=== PATIENT | male | born 1975 | race Caucasian/White ===

== ENCOUNTER → 2017-01-20 | Outpatient (CLI) | payer BC ==
[2017-01-20 14:43] LABS: Basophils % (A) 1 %; CH 34.5; Eosinophils # (A) 0.2 k/uL (0-0.7); Eosinophils % (A) 4 %; HCT 48.1 % (39.0-53.0); HDW 2.63; HGB 17.1 gm/dL (13.0-17.5); Luc # (Auto) 0.09; Luc % (Auto) 2; Lymphocytes # (A) 1.4 k/uL (1.0-4.8); Lymphocytes % (A) 27 %; MCH 33.2 pg (25.0-35.0); MCHC 35.5 g/dL (31.0-37.0); MCV 93.6 fL (80.0-100.0); Mean Platelet Volume 7.9; Monocytes # (A) 0.4 k/uL (0-1.0); Monocytes % (A) 8 %; Neutrophils % (A) 58 %; RBC 5.14 m/uL (4.30-5.90); RDW 12.7 % (11.5-15.5); WBC 5.1 k/uL (3.8-10.6); WBC (Perox) 5.09
[2017-01-20 14:48] LABS: ALT 40 U/L (21-72); AST 25 U/L (17-59); Alkaline Phosphatase 65 U/L (38-126); Anion Gap 10 mmol/L; Blood Urea Nitrogen 8 mg/dL (9-20); Calcium 9.8 mg/dL (8.4-10.2); Carbon Dioxide 27 mmol/L (22-30); Chloride 104 mmol/L (98-107); Cholesterol 200 mg/dL (<200); Glucose 84 mg/dL (74-99); HDL Cholesterol 52 mg/dL (40-60); Non-African American GFR(MDRD) >60 (>60 ml/min/1.73 sqM); Potassium 4.2 mmol/L (3.5-5.1); Sodium 141 mmol/L (137-145); Total Bilirubin 0.9 mg/dL (0.2-1.3); Uric Acid 7.8 mg/dL (3.5-8.5)
--- NOTE | 2017-01-20 14:49 | US ---
EXAMINATION TYPE: US soft tissue head/neck DATE OF EXAM: 01/20/2017 COMPARISON: NONE CLINICAL HISTORY: K11.5 Sialolithiasis. Patient c/o neck swelling, palpables at right neck especially noted after meals US of right neck: at patient's area of palpable at right submandibular region a couple of small hypoe choic nodules are seen with primary palpable measuring 1.4 x 1.1 x 0.4cm. Secondary nodule is noted m ore superiorly at right neck. Left neck submandibular region was also imaged for comparison with hypo echoic nodule seen at angle of jaw = 1.0 x 0.4 x 0.4cm. IMPRESSION: Findings are most compatible with small lymph nodes.
== END | disposition home or self-care (01) ==
LOC: RADUSWWP 13:29
PROVIDERS: ATTEND Family Medicine
DX: K11.5 Sialolithiasis (principal)
CPT/HCPCS: 76536; 80053; 80061; 82164; 84443; 84550; 85025; 86235

== ENCOUNTER → 2020-01-29 | Outpatient (CLI) | payer BC ==
--- NOTE | 2020-01-29 19:59 | CT ---
EXAMINATION TYPE: CT abdomen pelvis wo/w con DATE OF EXAM: 01/29/2020 COMPARISON: Abdomen pain INDICATION: Abdominal pain. Stat hold and call DLP: 1041.20 mGycm, Automated exposure control for dose reduction was used. CONTRAST: 100 mL of Isovue 300. Study performed with Oral Contrast TECHNIQUE: Axial images were obtained from above the diaphragm to the pubic rami in the axial plane a t 5 mm thick sections. Reconstructed images are reviewed on the computer in the coronal plane. FINDINGS: Limited CT sections are obtained the lung bases. The lung bases are clear. CT ABDOMEN: Liver: Normal Spleen: Normal Pancreas: Normal Adrenal glands: The adrenal glands are normal. Gallbladder: Normal Kidneys: No masses are evident. No hydronephrosis is present. No cysts are present. No renal stone s are identified. There is a right extrarenal pelvis. Aorta: Normal Inferior vena cava: Normal. CT PELVIS: There is a short segment of ileum which may has some mild wall thickening. Series 11 image 39. This could be peristalsis at the time of the exam. This is imaged only on a single sequence beti ot be evaluated for chemical cell changer time. Loops of bowel within the abdomen and pelvis are normal. There are loops of bowel which are incom pletely distended or lack oral contrast limiting their evaluation. Appendix: Normal as visualized. Urinary bladder: Normal. Genitourinary structures: Prostate is prominent. Osseous structures: No suspicious lytic or sclerotic lesions. IMPRESSIONS: 1. Some mild wall thickening within the distal ileum just proximal to the terminal ileum is not excl uded. However, this could also include peristalsis at the time of the examination. No additional susp icious bowel abnormalities are evident. The appendix in the right lower quadrant is normal. 2. CT abdomen is otherwise unremarkable.
== END | disposition home or self-care (01) ==
LOC: RADCTMAIN 17:15
PROVIDERS: ATTEND Family Medicine
DX: K63.89 Other specified diseases of intestine (principal)
CPT/HCPCS: 74178; Q9967

== ENCOUNTER → 2020-09-14 | Outpatient (CLI) | payer BC ==
--- NOTE | 2020-09-14 21:21 | MR ---
EXAMINATION TYPE: MR angio head wo con DATE OF EXAM: 09/14/2020 COMPARISON: None HISTORY: Family history of ischemic heart disease and other diseases of the circulatory system. Z 82. 49 TECHNIQUE: Time of flight images focusing on the [place] of [place] were performed without contrast. Th ree-dimensional reconstructions performed on an alternate workstation. FINDINGS: Anterior and posterior circulation are patent. There is variant with near origin of t he posterior cerebral artery on the left, normal variant. Vertebral arteries are codominant. No evide nt stenosis, embolus, aneurysm or dissection. IMPRESSION: No significant abnormality is evident.
== END | disposition home or self-care (01) ==
LOC: RADMRIMAIN 18:04
PROVIDERS: ATTEND Nurse Practitioner Adult Health
DX: Z13.6 Encounter for screening for cardiovascular disorders (principal); Z82.49 Family history of ischemic heart disease and other diseases of the circulatory system
CPT/HCPCS: 70544

== ENCOUNTER → 2020-09-23 | Outpatient (CLI) | payer BC | END | disposition home or self-care (01) | LOC: RADNMMAIN 08:36 | PROVIDERS: ATTEND Family Medicine | DX: Z53.9 Procedure and treatment not carried out, unspecified reason (principal) ==

== ENCOUNTER → 2020-09-25 | Outpatient (CLI) | payer BC ==
--- NOTE | 2020-09-25 11:38 | ECHOF ---
Referral Reason:I10 Essential hypertension MEASUREMENTS -------- HEIGHT: 165.1 cm WEIGHT: 79.4 kg BP: RVIDd: 3.3 cm (< 3.3) IVSd: 1.4 cm (0.6 - 1.1) LVIDd: 3.9 cm (3.9 - 5.3) LVPWd: 1.4 cm (0.6 - 1.1) IVSs: 1.6 cm LVIDs: 2.4 cm LVPWs: 1.9 cm LAESV Index (A-L): 25.24 ml/m Ao Diam: 3.3 cm (2.0 - 3.7) AV Cusp: 1.9 cm (1.5 - 2.6) MV EXCURSION: 17.333 mm (> 18.000) MV EF SLOPE: 52 mm/s (70 - 150) EPSS: 1.3 cm MV E Gigi: 0.74 m/s MV DecT: 198 ms MV A Gigi: 0.94 m/s MV E/A Ratio: 0.78 RAP: 5.00 mmHg RVSP: 23.47 mmHg FINDINGS -------- Sinus rhythm. This was a technically adequate study. The left ventricular size is normal. There is moderate concentric left ventricular hypertrophy. O verall left ventricular systolic function is normal with, an EF between 55 - 60 %. The diastolic fi lling pattern is normal for the age of the patient 11.63. The right ventricle is normal in size. Normal LA size by volume 22+/-6 ml/m2. The right atrial size is normal. Interatrial and interventricular septum intact. The aortic valve is trileaflet and appears structurally normal. There is no evidence of aortic regu rgitation. There is no evidence of aortic stenosis. There is trace mitral regurgitation. Mild tricuspid regurgitation present. There is no evidence of pulmonary hypertension. The right v entricular systolic pressure, as measured by Doppler, is 23.47mmHg. There is no pulmonic regurgitation present. The aortic root size is normal. Normal inferior vena cava with normal inspiratory collapse consistent with estimated right atrial pre ssure of 5 mmHg. There is no pericardial effusion. CONCLUSIONS -------- 1. The left ventricular size is normal. 2. There is moderate concentric left ventricular hypertrophy. 3. Overall left ventricular systolic function is normal with, an EF between 55 - 60 %. 4. The diastolic filling pattern is normal for the age of the patient 11.63 5. Mild tricuspid regurgitation present. SAIL LAY OUT WORKER: Melida Lai RDCS
== END | disposition home or self-care (01) ==
LOC: RADECHMAIN 10:29
PROVIDERS: ATTEND Family Medicine
DX: I07.1 Rheumatic tricuspid insufficiency (principal)
CPT/HCPCS: 93306

== ENCOUNTER → 2020-09-29 | Outpatient (CLI) | payer BC ==
--- NOTE | 2020-09-29 18:50 | P.STRESS ---
- Stress Test Note Stress Test Results/Findings: Exam Performed: stress test Exam Date: 09/29/20 Reason for Exam: ABNORMAL EKG Height: 5 ft 5 in Weight: 175 kg Protocol: AZALEA Stage: 4 Duration of Exercise: 11:03 Resting Heart Rate: 58 Resting Blood Pressure: 149/107 Maximum Achieved Heart Rate: 150 Maximum Achieved Blood Pressure: 214/136 85% PMHR: 147 100% PMHR: 173 METS: 12.1 Technologist Comment: Stress Test Results/Findings: Baseline heart rate 58 beats a minute, Baseline blood pressure 140 90 107 mmHg Baseline per EKG showed sinus rhythm with normal ST segments LVH noted Patient exercised for a Azalea protocol for 11 minutes achieving a peak heart rate of 150 beats a minute. Hypertensive response to exercise. Peak blood p ressure 214/106. His mercury There was no ECG is with arrhythmia Minimal upsloping ST depression No clear-cut evidence for ischemia Excellent exercise capacity Hypertensive response to exercise
--- NOTE | 2020-10-02 10:46 | EST ---
Stress Test Results/Findings: Exam Performed: stress test Exam Date: 09/29/20 Reason for Exam: ABNORMAL EKG Height: 5 ft 5 in Weight: 175 kg Protocol: AZALEA Stage: 4 Duration of Exercise: 11:03 Resting Heart Rate: 58 Resting Blood Pressure: 149/107 Maximum Achieved Heart Rate: 150 Maximum Achieved Blood Pressure: 214/136 85% PMHR: 147 100% PMHR: 173 METS: 12.1 Technologist Comment: Stress Test Results/Findings: Baseline heart rate 58 beats a minute, Baseline blood pressure 140 90 107 mmHg Baseline per EKG showed sinus rhythm with normal ST segments LVH noted Patient exercised for a Azalea protocol for 11 minutes achieving a peak heart rate of 150 beats a minute. Hypertensive response to exercise. Peak blood pressure 214/106. His mercury There was no ECG is with arrhythmia Minimal upsloping ST depression No clear-cut evidence for ischemia Excellent exercise capacity Hypertensive response to exercise MTDD
== END | disposition home or self-care (01) ==
LOC: RADNMMAIN 10:34
PROVIDERS: ATTEND Family Medicine
DX: R94.31 Abnormal electrocardiogram [ECG] [EKG] (principal); I10 Essential (primary) hypertension
CPT/HCPCS: 93017

== ENCOUNTER → 2023-07-18 | Outpatient (CLI) | payer BC ==
--- NOTE | 2023-07-19 17:36 | US ---
EXAMINATION TYPE: US st tissue neck DATE OF EXAM: 07/18/2023 COMPARISON: US 01/20/2017 CLINICAL INDICATION: Male, 48 years old with history of R59.0 LOCALIZED ENLARGED LYMPH NODES; Palpabl e area within right submandibular area x a couple years. Area swells intermittently. No other palpabl e areas. TECHNIQUE: Bilateral neck scanned. FINDINGS: Porcelain Enamel Installer notes: *Isoechoic area with vascularity seen within right submandibular area, at the patient's palpable area of concern measurin.9 x 2.2 x 2.0 cm. 01/20/2017, this measured 3.3 x 3.3 x 1.5 cm. No abnormalities seen within midline neck or left neck. IMPRESSION: Masslike appearance to the region of the right submandibular gland fairly similar compared to 2017 me asuring 2.9 cm versus 3.3 cm at that time. Correlate for any known diagnosis. There is otherwise, no lymphadenopathy seen. A salivary gland tumor is possible. If there is intermittent swelling, consider sialoadenitis.
== END | disposition home or self-care (01) ==
LOC: RADUSWWP 16:10
PROVIDERS: ATTEND Family Medicine
DX: K11.8 Other diseases of salivary glands (principal); R59.0 Localized enlarged lymph nodes
CPT/HCPCS: 76536

== ENCOUNTER → 2023-09-13 | Outpatient (CLI) | payer BC ==
[2023-09-13 15:25] LABS: Blood Urea Nitrogen 10.5 mg/dL (9.0-27.0); Chloride 101 mmol/L (96-109); Potassium 3.6 mmol/L (3.5-5.5); Sodium 141 mmol/L (135-145)
[2023-09-13 16:18] LABS: HCT 46.5 % (39.6-50.0); HGB 16.5 g/dL (13.0-17.0); MCH 32.8 pg (27.0-32.0); MCHC 35.5 g/dL (32.0-37.0); MCV 92.4 FL (80.0-97.0); Mean Platelet Volume 11.1 FL (9.5-12.2); NRBC Per 100 WBC 0 X 10*3/uL (0.00-0.01); Platelet Count 234 X 10*3/uL (140-440); RBC 5.03 X 10*6/uL (4.40-5.60); RDW 11.6 % (11.5-14.5); WBC 4.73 X 10*3/uL (4.50-10.00)
== END | disposition home or self-care (01) ==
LOC: LABWHC1 07:58
PROVIDERS: ATTEND Internal Medicine
DX: Z01.812 Encounter for preprocedural laboratory examination (principal); R06.02 Shortness of breath
CPT/HCPCS: 36415; 80051; 82565; 84520; 85027

== ENCOUNTER 2023-09-18 10:41 | Day surgery (SDC) | payer BC ==
[~2023-09-18 10:41] MED LIST: ALPRAZolam 0.25 MG TAB PO PRN; ALPRAZolam 0.5 MG TAB PO PRN; ASPIRIN 325 MG TAB PO ONE; NITROGLYCERIN SL TABS 0.4 MG TAB SUBLINGUAL PRN; SODIUM CHLORIDE 0.9% 1,000 ML in EMPTY BAG 1 BAG IV SCH
[2023-09-18 11:46] LABS: Basophils % (A) 1 %; Eosinophils # (A) 0.1 k/uL (0-0.7); Eosinophils % (A) 2 %; HCT 49.4 % (39.0-53.0); HGB 17.3 gm/dL (13.0-17.5); Lymphocytes # (A) 1.8 k/uL (1.0-4.8); Lymphocytes % (A) 30 %; MCH 33.2 pg (25.0-35.0); MCHC 35.1 g/dL (31.0-37.0); MCV 94.4 fL (80.0-100.0); Mean Platelet Volume 8.2; Monocytes # (A) 0.5 k/uL (0-1.0); Monocytes % (A) 9 %; Neutrophils # (A) 3.5 k/uL (1.3-7.7); Neutrophils % (A) 57 %; Platelet Count 236 k/uL (150-450); RBC 5.23 m/uL (4.30-5.90); RDW 11.3 % (11.5-15.5); WBC 6.2 k/uL (3.8-10.6)
[2023-09-18] MEDS: SODIUM CHLORIDE 0.9% 1,000 ML IV ONE (11:52)
[2023-09-18 11:56] VITALS: RESP 16; TEMP 97.8
[2023-09-18 12:05] LABS: African American GFR (CKD) >90 (>60 ml/min/1.73 sqM); Anion Gap 8 mmol/L; Blood Urea Nitrogen 14 mg/dL (9-20); Calcium 9.9 mg/dL (8.4-10.2); Carbon Dioxide 27 mmol/L (22-30); Chloride 102 mmol/L (98-107); Glucose 101 mg/dL (74-99); Non-African American GFR(CKD) >90 (>60 ml/min/1.73 sqM); Potassium 3.7 mmol/L (3.5-5.1); Sodium 137 mmol/L (137-145)
[2023-09-18] MEDS ORDERED: VERAPAMIL 2.5 MG/ML 2 ML AMP ONE (12:39)
[2023-09-18] MEDS ORDERED: LIDOCAINE 1% INJ 10MG/ML (20 ML MDV) ONE (12:40)
[2023-09-18] MEDS ORDERED: HEPARIN SODIUM 1,000 UN/ML (10ML VL) ONE (12:51)
[2023-09-18] MEDS ORDERED: fentaNYL (PF) 50 MCG/ML 2 ML AMP ONE (12:51)
[2023-09-18] MEDS: fentaNYL (PF) 50 MCG/ML 2 ML AMP IVP ONE (12:57)
[2023-09-18] MEDS: MIDAZOLAM 2 MG/2 ML VIAL IVP ONE (12:57)
[2023-09-18] MEDS: LIDOCAINE 1% INJ 10MG/ML (20 ML MDV) SQ ONE (12:57)
[2023-09-18] MEDS: VERAPAMIL SYRINGE (5 MG/10 ML) INTRAARTER ONE (12:57)
[2023-09-18] MEDS: HEPARIN SODIUM 1,000 UN/ML (10ML VL) IVP ONE ×2 (13:00→13:10)
[2023-09-18] MEDS: IOPAMIDOL-370 100ML BTL INJ ONE (13:11)
--- NOTE | 2023-09-18 16:10 | P.CARDCATH ---
Description of Procedure: PROCEDURES PERFORMED: Left heart catheterization, bilateral coronary angiography, ultrasound guided arterial access, iFR LAD INDICATION: Abnormal stress test CONSENT:I have discussed the risks, benefits and alternative therapies for the above-mentioned procedure and for both sedation/analgesia as well as necessary blood product administration, if indicated, as they pertain to this patient. The patient has indicated understanding and acceptance of the risks and procedures discussed. PROCEDURE: After the risks, benefits and alternatives of the above mentioned procedure explained in detail with the patient, informed consent was obtained. Patient was taken to the catheterization lab and prepped and draped in usual fashion. Ultrasound guidance was used to assess for arterial access. 1% lidocaine was used to anesthetize the right radial artery. A 6-Mauritian sheath was placed in the right radial artery using modified Seldinger technique and ultrasound guidance. Left coronary angiography was performed with a 5-Mauritian JL 3.5 catheter and right coronary angiography was performed with a 5-Mauritian FR5 catheter in various views. A 5-Mauritian FR5 catheter was inserted into the left ventricle and pressure measurements were obtained. The decision was made to perform iFR of the LAD. Heparin was given. A 0.014 pressure wire was advanced in the left main and then normalized. It was then advanced 1 cm distal to the mid LAD and iFR was performed and normal at 0.94. The right radial sheath was removed and a TR band was placed with hemostasis achieved. The patient tolerated the procedure well. Patient was transported back to the post catheterization holding area in stable condition. Conscious Sedation: Patient was monitored under the direct supervision of myself for conscious sedation using Versed and fentanyl for a total duration of 14 minutes HEMODYNAMICS: Aorta: 182/92 LV: 181/10, LVEDP 22 SELECTIVE CORONARY ARTERIOGRAPHY: LEFT MAIN: The left main is a large caliber vessel which bifurcates into the LAD and circumflex. There is no significant stenosis. LEFT ANTERIOR DESCENDING CORONARY ARTERY: LAD is a large caliber vessel which wraps around to the apex. There is Diffuse proximal LAD calcification with tandem proximal 40%, 50% and mid LAD 40% stenosis. Otherwise there are mild luminal irregularities. LEFT CIRCUMFLEX CORONARY ARTERY: Left circumflex is a large caliber vessel with mild luminal irrgularities. The circumflex gives off the PDA and is the dominant vessel. RIGHT CORONARY ARTERY: The right coronary artery is a small caliber vessel which gives off an acute marginal branch and is a non dominant vessel. There is no significant stenosis. FINAL IMPRESSION: 1. CAD as described above including proximal LAD 40-50% stenosis, mid LAD 40% stenosis and otherwise mild luminal irregularities 2. Elevated left sided filling pressures 3. Hypertensive throughout exam 4. iFR LAD normal PLAN: 1. Aggressive risk factor modification per most recent ACC/AHA guidelines. 2. Follow-up in the office in 1-2 weeks. 3. Consider more aggressive BP regimen
[2023-09-18 17:56] VITALS: BP 149/87; PULSE 61
== END 2023-09-18 17:34 | disposition home or self-care (01) ==
LOC: CATHCVL 10:41
PROVIDERS: ATTEND Internal Medicine
DX: I25.10 Atherosclerotic heart disease of native coronary artery without angina pectoris (principal); I10 Essential (primary) hypertension; Z79.899 Other long term (current) drug therapy
CPT/HCPCS: 93458; 93799; 76937; 80048; 85025; C1769 ×2; C1894; J2250; J2001; J3010; J1644; Q9967

== ENCOUNTER → 2023-09-21 | Outpatient (CLI) | payer BC ==
--- NOTE | 2023-09-21 10:35 | CT ---
EXAMINATION TYPE: CT soft tissue neck w con DATE OF EXAM: 09/21/2023 COMPARISON: None HISTORY: 48-year-old male R22.1, Localized swelling, mass and lump RT side, marked by BB TECHNIQUE: Contiguous axial scanning of the soft tissues of the neck performed with IV Contrast, mi ent injected with 100 mL of Isovue 300. Coronal/sagittal reconstructions performed. CT DLP: 604 mGycm Automated exposure control for dose reduction was used. FINDINGS: Leftward nasal septal deviation. Paranasal sinuses and mastoid air cells appear clear. Visualized int racranial structures and orbits and globes appear intact. Oropharynx is clear. Mild bilateral palatine tonsillar hypertrophy. Mild bilateral tonsillar hypertrophy. Nasopharynx and oropharynx otherwise clear. Epiglottis and prevertebral soft tissues are satisfactory. Glottic and subglottic structures as well as the tracheal column and visualized upper lungs are clear . The thyroid gland, bilateral submandibular glands, and parotid glands appear satisfactory. Palpable marker has been placed over the right mandibular gland. Some asymmetrically larger right submandibular space lymph nodes are noted near measuring up to 7 mm, probably reactive/post inflammatory. No other cervical lymphadenopathy is seen or suspicious neck mass. Bones: Moderate anterior endplate spondylosis C5-C6. No osseous destructive process. IMPRESSION: 1. PALPABLE MARKER PLACED ALONG THE RIGHT SUBMANDIBULAR SPACE. UNDERLYING THE MARKER, THERE ARE A VIE W LYMPH NODES THAT ARE ASYMMETRICALLY LARGER COMPARED TO THE LEFT SIDE MEASURING UP TO 7 MM. PROBABLY REACTIVE/POST INFLAMMATORY. NO SUSPICIOUS CERVICAL ADENOPATHY OR NECK MASS IS IDENTIFIED. CLINICAL F OLLOW-UP RECOMMENDED TO ENSURE STABILITY/RESOLUTION. TARGETED ULTRASOUND CAN BE PERFORMED IF ANY PROG RESSIVE ENLARGEMENT. 2. MILD BILATERAL PALATINE TONSILLAR AND LINGUAL TONSILLAR HYPERTROPHY.
== END | disposition home or self-care (01) ==
LOC: RADCTMAIN 08:32
PROVIDERS: ATTEND Otolaryngology
DX: J35.1 Hypertrophy of tonsils (principal); R22.1 Localized swelling, mass and lump, neck
CPT/HCPCS: 70491; Q9967

== ENCOUNTER 2023-10-29 16:07 | Emergency (ER) | payer BC ==
[2023-10-29 16:26] VITALS: TEMP 98.3
--- NOTE | 2023-10-29 16:53 | ED ---
ENT HPI - General Chief complaint: ENT Stated complaint: Swollen glands Time Seen by Provider: 10/29/23 16:27 Source: patient, family, RN notes reviewed, old records reviewed Mode of arrival: ambulatory Limitations: no limitations - History of Present Illness Initial comments: 48-year-old male with a past medical history of hypertension and gout presenting to the ED with a chief complaint of swollen lymph nodes. Patient reports has had intermittent swelling of right lymph node for the past 4 years. He admits that he has not been evaluated for this formally. However, the past few months patient reports that this has worsened. Patient saw Dr. Alfaro for this last month who performed a CT soft tissue neck with contrast on 09/21/2023 which did show asymmetrically larger right submandibular space lymph nodes measuring up to 7 mm. Reports since then swelling has increased and increasing difficulty swallowing solid foods. States in the last 2 days he has only been able to tolerate a banana still able to tolerate liquids. Does note that it has been typically painless but since it has become more swollen has also become more painful. Denies night sweats. Denies unexplained fevers. Patient's does note that he has unexpectedly lost 10 to 15 pounds over the last 4 months. Upon arrival, does note development of some nausea. Denies chest pain or shortness of breath at this time. No changes in bowel or bladder habits other complaints at this time. - Related Data Home Medications Medication Instructions Recorded Confirmed Rosuvastatin [Crestor] 10 mg PO HS 09/14/23 09/14/23 allopurinoL 100 mg PO AC-SUPPER 09/14/23 09/14/23 amLODIPine [Norvasc] 2.5 mg PO QAM 09/14/23 09/18/23 cloNIDine HCL 0.1 mg PO AC-SUPPER 09/14/23 09/14/23 hydroCHLOROthiazide 25 mg PO AC-SUPPER 09/14/23 09/14/23 tadalafiL 5 mg PO HS 09/14/23 09/14/23 Aspirin 81 mg PO ONCE 09/18/23 09/18/23 Previous Rx's Medication Instructions Recorded Amoxic-Pot Clav 875-125Mg 1 tab PO Q12HR 7 Days #14 tab 10/29/23 [Augmentin 875-125] Ibuprofen [Motrin] 600 mg PO Q8HR PRN #30 tab 10/29/23 Allergies Allergy/AdvReac Type Severity Reaction Status Date / Time No Known Allergies Allergy Verified 10/29/23 16:26 Review of Systems ROS Statement: Those systems with pertinent positive or pertinent negative responses have been documented in the HPI. ROS Other: All systems not noted in ROS Statement are negative. Past Medical History Past Medical History: Coronary Artery Disease (CAD), Chest Pain / Angina, GERD/Reflux, Hyperlipidemia, Hypertension, Prostate Disorder Additional Past Medical History / Comment(s): Pt. states shortness of breath occassionally, enlarged prostate, thyroid nodule? - F/U w/ Dr. Davis next week History of Any Multi-Drug Resistant Organisms: None Reported Additional Past Surgical History / Comment(s): eye surgery at 3 yrs. age Past Anesthesia/Blood Transfusion Reactions: No Reported Reaction Past Psychological History: No Psychological Hx Reported Smoking Status: Never smoker Past Alcohol Use History: Occasional Past Drug Use History: Marijuana - Past Family History Mother Family Medical History: CVA/TIA Additional Family Medical History / Comment(s): ruptured brain aneurysm General Exam Limitations: no limitations General appearance: alert, in no apparent distress ENT exam: Present: other (Right cervical and submandibular lymphadenopathy. Tongue appears deviated to the left and is unable to protrude the tongue secondary to swelling. Uvula midline. Mucous membranes moist. No stridor. Tolerating secretions.) Respiratory exam: Present: normal lung sounds bilaterally Cardiovascular Exam: Present: regular rate GI/Abdominal exam: Present: soft, normal bowel sounds. Absent: distended, tenderness, guarding, rebound, rigid Neurological exam: Present: alert, oriented X3 Skin exam: Present: warm, dry Course Vital Signs 10/29/23 10/29/23 10/29/23 16:22 17:49 19:02 Temperature 98.3 F Pulse Rate 82 86 81 Respiratory 16 18 18 Rate Blood Pressure 162/125 153/108 138/81 O2 Sat by Pulse 99 99 98 Oximetry 10/29/23 19:19 Temperature Pulse Rate 81 Respiratory 18 Rate Blood Pressure 138/81 O2 Sat by Pulse 97 Oximetry Medical Decision Making - Medical Decision Making Was pt. sent in by a medical professional or institution (, PA, WIND OPERATIONS SUPERVISOR, urgent care, hospital, or intermediate...) When possible be specific @ -No Did you speak to anyone other than the patient for history (EMS, parent, family, police, friend...)? What history was obtained from this source @ -No Did you review nursing and triage notes (agree or disagree)? Why? @ -I reviewed and agree with nursing and triage notes Were old charts reviewed (outside hosp., previous admission, EMS record, old EKG, old radiological studies, urgent care reports/EKG's, intermediate records)? Report findings @ -No old charts were reviewed Differential Diagnosis (chest pain, altered mental status, abdominal pain women, abdominal pain men, vaginal bleeding, weakness, fever, dyspnea, syncope, headache, dizziness, GI bleed, back pain, seizure, CVA, palpatations, mental health, musculoskeletal)? @ -Reactive adenitis, tuberculosis, cellulitis, malignancy, rheumatologic disease This is not meant to be an all-inclusive list. EKG interpreted by me (3pts min.). @ -None X-rays interpreted by me (1pt min.). @ -Chest x-ray interpreted me which revealed no evidence of acute finding. CT interpreted by me (1pt min.). @ -CT soft tissue neck inter by me which shows sialoadenitis involving the right submandibular gland with obstructing calculus near the right tongue at Lynn's duct. U/S interpreted by me (1pt. min.). @ -Ultrasound interpreted me hypoechoic area seen measuring 3.1 x 2.4 x 3 cm in the right submandibular area. What testing was considered but not performed or refused? (CT, X-rays, U/S, labs)? Why? @ -None What meds were considered but not given or refused? Why? @ -None Did you discuss the management of the patient with other professionals (professionals i.e. , PA, WIND OPERATIONS SUPERVISOR, lab, RT, psych nurse, social services aide, insemination worker, teacher, district resource officer, lining caser)? Give summary @ -Case discussed with Dr. Alfaro, of ENT, who recommends antibiotics with repeat CT scan. Was smoking cessation discussed for >3mins.? @ -No Was critical care preformed (if so, how long)? @ -No Were there social determinants of health that impacted care today? How? (Homelessness, low income, unemployed, alcoholism, drug addiction, transporta tion, low edu. Level, literacy, decrease access to med. care, usp, rehab)? @ -No Was there de-escalation of care discussed even if they declined (Discuss DNR or withdrawal of care, Hospice)? DNR status @ -No What co-morbidities impacted this encounter? (DM, HTN, Smoking, COPD, CAD, Cancer, CVA, ARF, Chemo, Hep., AIDS, mental health diagnosis, sleep apnea, morbid obesity)? @ -None Was patient admitted / discharged? Hospital course, mention meds given and route, prescriptions, significant lab abnormalities, going to OR and other pertinent info. @ -Discharge 48-year-old male presenting to the ED with complaints of swollen lymph nodes. Has been intermittently ongoing for the past 4 years however over the past has been worsening. CT soft tissue neck significant for sialadenitis of the right submandibular gland with an obstructing calculus in the right tongue at Lynn's duct. Laboratory studies reviewed. CBC unremarkable, CMP unremarkable, LDH slightly elevated at 253, CRP slightly elevated at 2.4. Patient provided a dose of Unasyn here. Discharged home with prescription for Augmentin. Advise warm compresses and sialagogues use. Advise close follow-up with ENT. Discussed tricked return precautions with patient who verbalized agreement. Undiagnosed new problem with uncertain prognosis? @ -No Drug Therapy requiring intensive monitoring for toxicity (Heparin, Nitro, Insulin, Cardizem)? @ -No Were any procedures done? @ -No Diagnosis/symptom? @ -Sialadenitis Acute, or Chronic, or Acute on Chronic? @ -Acute Uncomplicated (without systemic symptoms) or Complicated (systemic symptoms)? @ -Uncomplicated Side effects of treatment? @ -No Exacerbation, Progression, or Severe Exacerbation? @ -No Poses a threat to life or bodily function? How? (Chest pain, [place], PR, pneumonia, PE, COPD, DKA, ARF, appy, cholecystitis, CVA, Diverticulitis, Homicidal, Suicidal, threat to staff... and all critical care pts) @ -No - Lab Data Result diagrams: 10/29/23 16:47 10/29/23 16:47 Lab Results 10/29/23 10/29/23 Range/Units 16:47 16:47 WBC 9.2 (3.8-10.6) k/uL RBC 5.62 (4.30-5.90) m/uL Hgb 18.8 H (13.0-17.5) gm/dL Hct 52.7 (39.0-53.0) % MCV 93.9 (80.0-100.0) fL MCH 33.5 (25.0-35.0) pg MCHC 35.7 (31.0-37.0) g/dL RDW 11.5 (11.5-15.5) % Plt Count 253 (150-450) k/uL MPV 8.4 Neutrophils % 74 % Lymphocytes % 15 % Monocytes % 9 % Eosinophils % 1 % Basophils % 0 % Neutrophils # 6.8 (1.3-7.7) k/uL Lymphocytes # 1.4 (1.0-4.8) k/uL Monocytes # 0.8 (0-1.0) k/uL Eosinophils # 0.1 (0-0.7) k/uL Basophils # 0.0 (0-0.2) k/uL Manual Slide Review Performed RBC Morphology Normal Sodium 136 L (137-145) mmol/L Potassium 3.5 (3.5-5.1) mmol/L Chloride 99 (98-107) mmol/L Carbon Dioxide 23 (22-30) mmol/L Anion Gap 14 mmol/L BUN 10 (9-20) mg/dL Creatinine 0.75 (0.66-1.25) mg/dL Est GFR (CKD-EPI)AfAm >90 (>60 ml/min/1.73 sqM) Est GFR (CKD-EPI)NonAf >90 (>60 ml/min/1.73 sqM) Glucose 94 (74-99) mg/dL Calcium 10.2 (8.4-10.2) mg/dL Phosphorus 2.9 (2.5-4.5) mg/dL Total Bilirubin 1.6 H (0.2-1.3) mg/dL AST 36 (17-59) U/L ALT 38 (4-49) U/L Alkaline Phosphatase 105 (38-126) U/L Lactate Dehydrogenase 253 H (120-246) U/L C-Reactive Protein 2.4 H (<1.0) mg/dL Total Protein 8.2 (6.3-8.2) g/dL Albumin 5.3 H (3.5-5.0) g/dL Disposition Clinical Impression: Sialadenitis Disposition: HOME SELF-CARE Condition: Good Instructions (If sedation given, give patient instructions): Sialoadenitis (ED) Additional Instructions: Please return to the Emergency Department if symptoms worsen or any other concerns. Please follow-up with ENT. In addition to warm compresses have sour candies. Prescriptions: Amoxic-Pot Clav 875-125Mg [Augmentin 875-125] 1 tab PO Q12HR 7 Days #14 tab Ibuprofen [Motrin] 600 mg PO Q8HR PRN #30 tab PRN Reason: Pain Is patient prescribed a controlled substance at d/c from ED?: No Referrals: Juanito Navarrete MD [Primary Care Provider] - 1-2 days Time of Disposition: 20:45
[2023-10-29 17:20] LABS: Basophils % (A) 0 %; Eosinophils # (A) 0.1 k/uL (0-0.7); Eosinophils % (A) 1 %; HCT 52.7 % (39.0-53.0); HGB 18.8 gm/dL (13.0-17.5); Lymphocytes # (A) 1.4 k/uL (1.0-4.8); Lymphocytes % (A) 15 %; MCH 33.5 pg (25.0-35.0); MCHC 35.7 g/dL (31.0-37.0); MCV 93.9 fL (80.0-100.0); Mean Platelet Volume 8.4; Monocytes # (A) 0.8 k/uL (0-1.0); Monocytes % (A) 9 %; Neutrophils # (A) 6.8 k/uL (1.3-7.7); Neutrophils % (A) 74 %; Platelet Count 253 k/uL (150-450); RBC 5.62 m/uL (4.30-5.90); RDW 11.5 % (11.5-15.5); WBC 9.2 k/uL (3.8-10.6)
--- NOTE | 2023-10-29 17:22 | US ---
EXAMINATION TYPE: US thyroid st tissue head/neck DATE OF EXAM: 10/29/2023 N 2017 COMPARISON: EXAMINATION TYPE: US thyroid st tissue head/neck DATE OF EXAM: 10/29/2023 COMPARISON: 07/18/2023 CLINICAL INDICATION: Male, 48 years old with history of r submandibular lymphadnopathy; right neck renetta mp TECHNIQUE: FINDINGS: Scanned right neck hypoechoic area seen measuring 3.1 x 2.4 x 3.0 cm versus 2.9 x 2.2 x 2. 0 cm previously and in 2017 3.3 x 3.3 x 1.5 cm. Small hypoechoic area suggestive of lymph node seen 1 .0 x .7 cm. IMPRESSION: Continued masslike appearance in the region of the right submandibular gland with slight variation in size dating back to 2017. This could reflect sialoadenitis if there is associated intermittent swell ing. Salivary gland tumor is an additional possibility.
[2023-10-29] MEDS: SODIUM CHLORIDE 0.9% 1,000 ML IV STA (17:26)
[2023-10-29] MEDS: KETOROLAC 15 MG/ML 1 ML VIAL IVP STA (17:26)
[2023-10-29] MEDS: ONDANSETRON 4 MG/2 ML VIAL IVP STA (17:27)
[2023-10-29 17:34] LABS: RBC Morphology Normal
[2023-10-29 17:35] LABS: ALT 38 U/L (4-49); AST 36 U/L (17-59); African American GFR (CKD) >90 (>60 ml/min/1.73 sqM); Albumin 5.3 g/dL (3.5-5.0); Alkaline Phosphatase 105 U/L (38-126); Anion Gap 14 mmol/L; Blood Urea Nitrogen 10 mg/dL (9-20); C Reactive Protein 2.4 mg/dL (<1.0); Calcium 10.2 mg/dL (8.4-10.2); Carbon Dioxide 23 mmol/L (22-30); Chloride 99 mmol/L (98-107); Glucose 94 mg/dL (74-99); LDH 253 U/L (120-246); Non-African American GFR(CKD) >90 (>60 ml/min/1.73 sqM); Phosphorus 2.9 mg/dL (2.5-4.5); Potassium 3.5 mmol/L (3.5-5.1); Sodium 136 mmol/L (137-145); Total Bilirubin 1.6 mg/dL (0.2-1.3); Total Protein 8.2 g/dL (6.3-8.2)
[2023-10-29] MEDS: ACETAMINOPHEN IV (For NPO) 1,000 MG in EMPTY BAG 1 BAG IVPB STA (17:47)
[2023-10-29 17:50] VITALS: RESP 18
--- NOTE | 2023-10-29 18:09 | XR ---
EXAMINATION TYPE: XR chest 2V DATE OF EXAM: 10/29/2023 6:00 PM CLINICAL INDICATION:Male, 48 years old with history of r/o mass; COMPARISON: CT 09/21/2023. TECHNIQUE: XR chest 2V Frontal and lateral views of the chest. FINDINGS: Lungs/Pleura: There is no evidence of pleural effusion, focal consolidation, or pneumothorax. Pulmonary vascularity: Unremarkable. Heart/mediastinum: Cardiomediastinal silhouette is unremarkable. Musculoskeletal: No acute osseous pathology. IMPRESSION: 1. No acute cardiopulmonary disease/process. 2. No radiographic evidence for mass. Patient had recent CT 09/21/2023 no masses identified at that t vijaya within the neck.
[2023-10-29] MEDS: AMPICILLIN-SULBACTAM 3 GM in SODIUM CHLORIDE 0.9% 100 ML IVPB STA (19:19)
[2023-10-29] MEDS: HYDROmorphone 0.5 MG/0.5 ML SYRINGE IVP STA (19:20)
[2023-10-29] MEDS: DEXAMETHASONE SOD PHOSPHATE 10 MG/ML 1 ML VIAL IVP STA (19:20)
--- NOTE | 2023-10-29 20:20 | CT ---
EXAMINATION TYPE: CT soft tissue neck w con CT DLP: 370.1 mGycm, Automated exposure control for dose reduction was used. DATE OF EXAM: 10/29/2023 7:51 PM COMPARISON: 09/21/2023. CLINICAL INDICATION:Male, 48 years old with history of r submandibular swelling; PHH, pain, trouble s wallowing. R submandibular swelling. TECHNIQUE: Standard enhanced CT of the neck. Axial sections with coronal and sagittal reformats were obtained. Contrast used:100ml mL of Isovue 300 with IV Contrast, (None if empty) Oral contrast used: (None if empty) FINDINGS: Brain: Visualized portions are grossly unremarkable. Orbits: Unremarkable Sinuses: Grossly unremarkable. Spaces of the neck: Edematous right submandibular gland now measuring 32 x 25 mm previously 30 x 24 m m on 09/21/2023 there are some adjacent fat stranding. A calculus measuring 3 mm is present at Nando 's duct. Lymph node within the right submental region now measuring 9 mm, previously 5 mm. Musculoskeletal: No acute osseous pathology. Lymph nodes: No additional enlarged lymph nodes. Vascular structures: Visualized major arteries are patent without evidence of aneurysm. Thoracic Inlet/airway: Airway is patent. The lung apices are clear. Soft tissues/Thyroid: Thyroid and remainder of the soft tissues are unremarkable. Other: none. IMPRESSION 1. Sialadenitis involving the right submandibular gland with obstructing calculus near the right ton lev at Nando's duct. 2. Reactive adjacent lymph nodes present. No obstructing calculi visualized.
[2023-10-29 21:10] VITALS: BP 140/97; PULSE 82
[2023-10-29 23:10] LABS: Erythrocyte Sedimentation Rate 23 mm/Hr (0-15)
== END 2023-10-29 21:10 | disposition home or self-care (01) ==
LOC: EC 16:07
DX: K11.20 Sialoadenitis, unspecified (principal)
CPT/HCPCS: 36415; 80053; 85652; 83615; 84100; 85025; 86140; 71046; 76536; 70491; 99284; 96365; 96367; 96366; 96375; J1100; J2405; J0295; J0131; J1885; J1170; Q9967